=== PATIENT | male | born 1980 | race Caucasian/White ===

== ENCOUNTER 2021-03-01 12:48 | Observation (INO) ==
[2021-03-01] MEDS ORDERED: SODIUM CHLORIDE 0.9% 1000ML 1,000 ML IV ONE ×2 (13:08→14:45)
[2021-03-01] MEDS ORDERED: KETOROLAC TROMETHAMINE 15 MG/ML VIAL IV ONE (13:08)
--- NOTE | 2021-03-01 13:20 | Emergency Department Note ---
Impression & Plan Chest pain, Acute pericarditis, Pericardial effusion, Pleural effusion ED Provider Note NAME: SERGIO SNIHA AGE: 40 SEX: M : 1980 ARRIVES VIA: Walk-In INFORMANT: Patient, ED PROVIDER(S): Jw Turner DO CHIEF COMPLAINT: Chest pain HPI: Patient is a 40-year-old male who presents to the ER for squeezing chest pain which has been present for the past 48 hours in the middle of his chest. It is better when sitting up and significantly worse with lying flat. Admits to shortness of breath. He does admit to feeling his heart race as well. Is a smoker. Denies any belly pain, nausea, vomiting, or diarrhea. No dysuria, urgency, or frequency. No other exacerbating or remitting factors. Does have a history of previous pericarditis and this feels very similar. Patient denies diabetes, hypertension, hyperlipidemia, CAD, history of sudden at a young age. ROS: See above HPI for pertinent positives & negatives. A total of 10 systems reviewed and were otherwise negative. PAST MEDICAL HISTORY:See Below PAST SURGICAL HISTORY:See Below FAMILY HISTORY:See Below SOCIAL HISTORY:See Below HOME MEDICATIONS:See Below ALLERGIES:See Below VITALS:See Below PHYSICAL EXAMINATION: GENERAL: Sitting up in bed, alert, well appearing, well nourished, no distress, non-toxic EYE EXAM: normal conjunctiva. OROPHARYNX: no exudate, no erythema, lips, buccal mucosa, and tongue normal and mucous membranes are moist NECK: supple, no nuchal rigidity, no adenopathy, non-tender LUNGS: Clear to auscultation. Normal chest wall mechanics HEART: no murmurs, S1 normal and S2 normal ABDOMEN: abdomen soft, non-tender, normo-active bowel sounds, no masses, no rebound or guarding. UPPER EXTREMITIES: upper extremities are grossly normal. LOWER EXTREMITIES: No pitting edema. NEURO EXAM: Normal sensorium, cranial nerves II-XII grossly intact, normal speech, no gross weakness of arms, no gross weakness of legs. MEDICAL DECISION MAKING: Patient is a 40-year-old male with a past medical history of pericarditis who presents the ER for chest pain which is been present for the past 2 days.IV was established blood work was obtained. EKG shows diffuse ST segment abnormalities including SC depressions and ST segment elevations. Labs show no significant leukocytosis or anemia. ESR was elevated at 36. D-dimer was elevated at 560. BMP with LFTs bilirubin and troponin was negative with symptoms have been present for greater than 8 hours not indicative of ACS. His only risk factor is smoking. Lipase was normal. Covid was negative. Has not used any IV drugs for over [address] angio of the chest shows left lower lobe consolidation and effusion combination with pericardial effusion. Discussed with the case with Dr. Lackey from cardiology as well and is not any hospitalist Agapito Suarez for further evaluation. Patient was updated bedside. He was given IV Rocephin, normal saline, Toradol, colchicine and azithromycin and admitted for further work-up with the pericarditis, pleural effusion and questionable infiltrate in combination with pulse ox of about 90 to 92% Triage Nursing notes reviewed. Limited review of prior medical records performed Vital Signs: reviewed and remarkable for tachy Differential diagnosis: Differential diagnoses includes but is not limited to acute coronary syndrome, myocardial infarction, pericarditis, pulmonary embolus, aortic dissection, pne umonia, pneumothorax, musculoskeletal, shingles, esophageal. ER treatment provided: See below Diagnostics interpreted by me: ECG: Sinus rhythm rate of 113 Normal axis Diffuse cyst ST segment elevation with SC depressions QTC 433 Cardiac Monitoring: An order was placed for continuous cardiac monitoring. The monitor shows a rate of 121 with sinus rhythm. Laboratory studies: As stated above and show below. Imaging studies: CT angio of the chest as discussed above Consultation(s): Discussed with Dr. Tr Hutchinson from not any cardiology Discussed with Dr. Agapito Suarez from [facility] Procedures: none Critical Care: None Past Med/Surg History Medical History (Updated 03/01/21 @ 16:46 by Jw Turner DO) Drug abuse in remission History of opioid abuse In remission since 2017, on subutex Surgical History (Updated 03/01/21 @ 15:57 by Nathanael Sigala MD) History of hernia repair Social History (Updated 03/01/21 @ 15:58 by Nathanael Sigala MD) Smoking Status: Current every day smoker Tobacco Type: Cigarettes Hx Alcohol Use: Yes Alcohol Intake Frequency: 2-3 x/Week Hx Substance Use: Yes (in remission since 2017) Feels Safe at Home: Yes Allergies Allergies Allergy/AdvReac Type Severity Reaction Status Date / Time No Known Allergies Allergy Unverified 03/01/21 14:25 Home Meds Home Medications Medication Instructions Recorded Confirmed buprenorphine HCl 8 mg SUBLINGUAL BID 03/01/21 03/01/21 Results & Data (ED) Vital Signs Vital Signs - 24 hr 03/01/21 12:48 03/01/21 12:59 03/01/21 13:00 Temperature 36.7 C Temperature Source Temporal Artery Scan Pulse Rate 120 H 105 H 101 H Pulse Rate from SpO2 Sensor 102 H Pulse Rhythm Regular Regular Pulse Strength Normal Respiratory Rate 20 20 19 Respiratory Effort / Characteristics Non-Labored Spontaneous Respiratory Depth Normal Respiratory Pattern Regular Blood Pressure 129/83 134/80 Blood Pressure Mean 98 98 Blood Pressure Position Sitting Pulse Oximetry 97 99 91 Oxygen Delivery Method Room Air Room Air Sepsis Recent Fever Within 48 Hours No Sepsis New/Unexplained Change in Mental Status N/A Sepsis Action Taken by Nursing No Action Required 03/01/21 13:21 03/01/21 13:30 03/01/21 13:40 Temperature Temperature Source Pulse Rate 102 H 100 H 99 H Pulse Rate from SpO2 Sensor 102 H 100 H 100 H Pulse Rhythm Pulse Strength Respiratory Rate 16 20 15 Respiratory Effort / Characteristics Respiratory Depth Respiratory Pattern Blood Pressure 125/73 Blood Pressure Mean 90 Blood Pressure Position Pulse Oximetry 92 91 93 Oxygen Delivery Method Sepsis Recent Fever Within 48 Hours Sepsis New/Unexplained Change in Mental Status Sepsis Action Taken by Nursing 03/01/21 13:50 03/01/21 14:04 03/01/21 14:10 Temperature Temperature Source Pulse Rate 95 H 110 H 93 H Pulse Rate from SpO2 Sensor 95 H 95 H Pulse Rhythm Pulse Strength Respiratory Rate 15 13 Respiratory Effort / Characteristics Respiratory Depth Respiratory Pattern Blood Pressure Blood Pressure Mean Blood Pressure Position Pulse Oximetry 91 94 Oxygen Delivery Method Sepsis Recent Fever Within 48 Hours Sepsis New/Unexplained Change in Mental Status Sepsis Action Taken by Nursing 03/01/21 14:20 03/01/21 14:30 03/01/21 14:40 Temperature Temperature Source Pulse Rate 96 H 99 H 98 H Pulse Rate from SpO2 Sensor 94 H 98 H 98 H Pulse Rhythm Pulse Strength Respiratory Rate 16 18 21 Respiratory Effort / Characteristics Respiratory Depth Respiratory Pattern Blood Pressure 134/85 Blood Pressure Mean 101 Blood Pressure Position Pulse Oximetry 92 95 Oxygen Delivery Method Sepsis Recent Fever Within 48 Hours Sepsis New/Unexplained Change in Mental Status Sepsis Action Taken by Nursing 03/01/21 14:50 03/01/21 15:00 03/01/21 15:10 Temperature Temperature Source Pulse Rate 96 H 103 H 97 H Pulse Rate from SpO2 Sensor 97 H 100 H 97 H Pulse Rhythm Pulse Strength Respiratory Rate 14 15 23 Respiratory Effort / Characteristics Respiratory Depth Respiratory Pattern Blood Pressure 135/68 Blood Pressure Mean 90 Blood Pressure Position Pulse Oximetry 93 95 93 Oxygen Delivery Method Sepsis Recent Fever Within 48 Hours Sepsis New/Unexplained Change in Mental Status Sepsis Action Taken by Nursing 03/01/21 15:20 03/01/21 15:30 03/01/21 15:40 Temperature Temperature Source Pulse Rate 89 97 H 97 H Pulse Rate from SpO2 Sensor 89 98 H 97 H Pulse Rhythm Pulse Strength Respiratory Rate 16 20 18 Respiratory Effort / Characteristics Respiratory Depth Respiratory Pattern Blood Pressure 125/84 Blood Pressure Mean 97 Blood Pressure Position Pulse Oximetry 95 94 94 Oxygen Delivery Method Sepsis Recent Fever Within 48 Hours Sepsis New/Unexplained Change in Mental Status Sepsis Action Taken by Nursing Laboratory Data Result diagrams: 03/01/21 13:07 03/01/21 13:07 Lab Results 03/01/21 03/01/21 03/01/21 Range/Units 13:07 13:07 13:07 WBC 10.25 (4.8-10.8) K/uL RBC 4.40 L (4.7-6.1) M/uL Hgb 14.5 (14.0-18.0) g/dL Hct 42.5 (42-52) % MCV 96.6 (80-100) fL MCH 33.0 (25-34) pg MCHC 34.1 (32-36) g/dL RDW Std Deviation 50.4 H (36.4-46.3) fL RDW Coeff of [place] 14.2 (11.5-14.5) % Plt Count 222 (130-400) K/uL MPV 8.9 (7.4-10.4) fL Immature Gran % (Auto) 0.7 % Neut % (Auto) 66.1 % Lymph % (Auto) 18.9 % [place] % (Auto) 12.1 % Eos % (Auto) 2.0 % Baso % (Auto) 0.2 % Neut # (Auto) 6.78 H (1.4-6.5) K/uL Lymph # (Auto) 1.94 (1.2-3.4) K/uL [place] # (Auto) 1.24 H (0.11-0.59) K/uL Eos # (Auto) 0.20 (0-0.5) K/uL Baso # (Auto) 0.02 (0-0.2) K/uL Immature Gran # (Auto) 0.07 H (0.00-0.02) K/uL ESR (0-15) mm/hr APTT 27.2 (21.0-31.0) Seconds PTT Ratio 1.0 D-Dimer 560 H* (0-500) ug/L FEU Sodium 138 (136-145) mmol/L Potassium 3.9 (3.5-5.1) mmol/L Chloride 104 (98-107) mmol/L Carbon Dioxide 27 (21-32) mmol/L Anion Gap 7.0 (3-11) BUN 6 L (7-18) mg/dl Creatinine 0.69 (0.6-1.4) mg/dl Est Cr Clr Drug Dosing 182.5 ml/min Est GFR ( Amer) 138.6 ml/min Est GFR (Non-Af Amer) 119.6 ml/min BUN/Creatinine Ratio 8.2 L (10-20) Glucose 92 (70-99) mg/dl Calcium 9.3 (8.5-10.1) mg/dl Total Bilirubin 0.4 (0.2-1) mg/dl AST 18 (15-37) U/L ALT 36 (12-78) U/L Alkaline Phosphatase 104 (45-117) U/L Troponin I < 0.015 (0-0.045) ng/ml C-Reactive Protein (0-0.29) mg/dl Total Protein 7.9 (6.4-8.2) gm/dl Albumin 3.9 (3.4-5.0) gm/dl Globulin 4.0 (2.5-4.0) gm/dl Albumin/Globulin Ratio 1.0 (0.9-2) Lipase 114 (73-393) U/L COVID-19 Eval Order SARS-CoV-2 (PCR) (Negative) 03/01/21 03/01/21 03/01/21 Range/Units 13:07 13:07 15:07 WBC (4.8-10.8) K/uL RBC (4.7-6.1) M/uL Hgb (14.0-18.0) g/dL Hct (42-52) % MCV (80-100) fL MCH (25-34) pg MCHC (32-36) g/dL RDW Std Deviation (36.4-46.3) fL RDW Coeff of [place] (11.5-14.5) % Plt Count (130-400) K/uL MPV (7.4-10.4) fL Immature Gran % (Auto) % Neut % (Auto) % Lymph % (Auto) % [place] % (Auto) % Eos % (Auto) % Baso % (Auto) % Neut # (Auto) (1.4-6.5) K/uL Lymph # (Auto) (1.2-3.4) K/uL [place] # (Auto) (0.11-0.59) K/uL Eos # (Auto) (0-0.5) K/uL Baso # (Auto) (0-0.2) K/uL Immature Gran # (Auto) (0.00-0.02) K/uL ESR 36 H (0-15) mm/hr APTT (21.0-31.0) Seconds PTT Ratio D-Dimer (0-500) ug/L FEU Sodium (136-145) mmol/L Potassium (3.5-5.1) mmol/L Chloride (98-107) mmol/L Carbon Dioxide (21-32) mmol/L Anion Gap (3-11) BUN (7-18) mg/dl Creatinine (0.6-1.4) mg/dl Est Cr Clr Drug Dosing ml/min Est GFR ( Amer) ml/min Est GFR (Non-Af Amer) ml/min BUN/Creatinine Ratio (10-20) Glucose (70-99) mg/dl Calcium (8.5-10.1) mg/dl Total Bilirubin (0.2-1) mg/dl AST (15-37) U/L ALT (12-78) U/L Alkaline Phosphatase (45-117) U/L Troponin I (0-0.045) ng/ml C-Reactive Protein 2.55 H (0-0.29) mg/dl Total Protein (6.4-8.2) gm/dl Albumin (3.4-5.0) gm/dl Globulin (2.5-4.0) gm/dl Albumin/Globulin Ratio (0.9-2) Lipase (73-393) U/L COVID-19 Eval Order Covid19 at [facility] SARS-CoV-2 (PCR) (Negative) 03/01/21 Range/Units 15:07 WBC (4.8-10.8) K/uL RBC (4.7-6.1) M/uL Hgb (14.0-18.0) g/dL Hct (42-52) % MCV (80-100) fL MCH (25-34) pg MCHC (32-36) g/dL RDW Std Deviation (36.4-46.3) fL RDW Coeff of [place] (11.5-14.5) % Plt Count (130-400) K/uL MPV (7.4-10.4) fL Immature Gran % (Auto) % Neut % (Auto) % Lymph % (Auto) % [place] % (Auto) % Eos % (Auto) % Baso % (Auto) % Neut # (Auto) (1.4-6.5) K/uL Lymph # (Auto) (1.2-3.4) K/uL [place] # (Auto) (0.11-0.59) K/uL Eos # (Auto) (0-0.5) K/uL Baso # (Auto) (0-0.2) K/uL Immature Gran # (Auto) (0.00-0.02) K/uL ESR (0-15) mm/hr APTT (21.0-31.0) Seconds PTT Ratio D-Dimer (0-500) ug/L FEU Sodium (136-145) mmol/L Potassium (3.5-5.1) mmol/L Chloride (98-107) mmol/L Carbon Dioxide (21-32) mmol/L Anion Gap (3-11) BUN (7-18) mg/dl Creatinine (0.6-1.4) mg/dl Est Cr Clr Drug Dosing ml/min Est GFR ( Amer) ml/min Est GFR (Non-Af Amer) ml/min BUN/Creatinine Ratio (10-20) Glucose (70-99) mg/dl Calcium (8.5-10.1) mg/dl Total Bilirubin (0.2-1) mg/dl AST (15-37) U/L ALT (12-78) U/L Alkaline Phosphatase (45-117) U/L Troponin I (0-0.045) ng/ml C-Reactive Protein (0-0.29) mg/dl Total Protein (6.4-8.2) gm/dl Albumin (3.4-5.0) gm/dl Globulin (2.5-4.0) gm/dl Albumin/Globulin Ratio (0.9-2) Lipase (73-393) U/L COVID-19 Eval Order SARS-CoV-2 (PCR) NEGATIVE (Negative) Administered Medications Discontinued Medications Azithromycin (Azithromycin 250 Mg Tab) 500 mg PO NOW ONE Stop: 03/01/21 14:42 Last Admin: 03/01/21 15:04 Dose: 500 mg Documented by: [id number] Colchicine (Colchicine 0.6 Mg Tab) 0.6 mg PO NOW ONE Stop: 03/01/21 14:46 Last Admin: 03/01/21 15:04 Dose: 0.6 mg Documented by: [id number] Sodium Chloride (Nss 1000ml) 1,000 mls @ 999 mls/hr IV .Q1H1M ONE Stop: 03/01/21 14:08 Last Infusion: 03/01/21 14:23 Dose: 999 mls/hr Documented by: [id number] Admin: 03/01/21 13:22 Dose: 999 mls/hr Documented by: [id number] Ceftriaxone Sodium (Rocephin) 1,000 mg in 50 mls @ 100 mls/hr IV NOW STA Stop: 03/01/21 15:10 Last Infusion: 03/01/21 15:33 Dose: 100 mls/hr Documented by: [id number] Admin: 03/01/21 15:01 Dose: 100 mls/hr Documented by: [id number] Sodium Chloride (Nss 1000ml) 1,000 mls @ 999 mls/hr IV .Q1H1M ONE Stop: 03/01/21 15:45 Last Admin: 03/01/21 15:04 Dose: 999 mls/hr Documented by: [id number] Ioversol (Optiray 320 125ml) 120 ml IV ONCE ONE Stop: 03/01/21 14:06 Last Admin: 03/01/21 14:05 Dose: 120 ml Documented by: [id number] Ketorolac Tromethamine (Ketorolac Tromethamine 15 Mg/Ml Vial) 15 mg IV NOW ONE Stop: 03/01/21 13:09 Last Admin: 03/01/21 13:22 Dose: 15 mg Documented by: [id number] Imaging Data Radiologist's Impression: Chest X-Ray 03/01/21 12:59 XR chest 1V portable CLINICAL HISTORY: Chest Pain COMPARISON STUDY: No previous studies for comparison. FINDINGS: Lung volumes are normal. Lungs are clear. There is a suspected trace left pleural effusion. Cardiac size is normal. Mediastinal contours are normal. There is no evidence for pulmonary edema. IMPRESSION: Suspected trace left pleural effusion. ACT 112: Negative or not required by law. Electronically signed by: Roosevelt Guajardo M.D. 03/01/2021 1:22 PM Chest CTA 03/01/21 13:46 CT ANGIOGRAPHY OF THE CHEST, PULMONARY EMBOLUS PROTOCOL CLINICAL HISTORY: Midsternal chest pain. Shortness of breath. Evaluate for pulmo nary embolus. COMPARISON STUDY: Chest radiograph performed earlier today. TECHNIQUE: Following IV administration of 120 mL of Optiray, helical axial images of the chest were obtained utilizing the pulmonary embolus protocol. Maximal intensity projections and sagittal and coronal reformats were viewed on an independent 3D workstation. IV contrast was administered without complication. Automated exposure control was utilized for the study. A dose lowering technique was utilized adhering to the principles of ALARA. CT DOSE: 719.82 mGy.cm FINDINGS: No pulmonary emboli identified. There is no thoracic aortic dissection. Mild cardiomegaly is noted. Trace pericardial fluid and mild pericardial thickening is noted. No enlarged thoracic lymph nodes are present. Prominent distal paraesophageal lymph node is noted. There is no pneumothorax. Note is made of a small left pleural effusion. There is left lower lobe subpleural opacity. There is also lingular opacity. Opacities within the right lungs favor atelectasis. There is no pneumothorax. Hepatic steatosis is noted within visualized portions of the upper abdomen. Small hiatal hernia is present. IMPRESSION: 1. No pulmonary emboli identified. 2. Small left pleural effusion. Associated left lower lobe opacity could reflect pneumonia or atelectasis. 3. Mild pericardial thickening and trace pericardial fluid. ACT 112: Negative or not required by law. Electronically signed by: Roosevelt Guajardo M.D. 03/01/2021 2:34 PM Discharge Plan Visit Data Chief Complaint: Chest Pain Stated Complaint: CHEST PAIN 2 DAYS ED Provider: Jw Turner Discharge Problem: Chest pain, Acute pericarditis, Pericardial effusion, Pleural effusion Forms Stand Alone Forms: [employer] [facility] [employer] Prescriptions Prescriptions: No Action buprenorphine HCl 8 mg Tablet, Sublingual 8 mg SUBLINGUAL BID RF: 0 Discharge Problem: Chest pain Qualifiers: Chest pain type: unspecified Qualified Code(s): R07.9 - Chest pain, unspecified Acute pericarditis Qualifiers: Pericarditis type: unspecified type Qualified Code(s): I30.9 - Acute pericarditis, unspecified
[2021-03-01 13:23] LABS: Basophils # (auto) 0.02 K/uL (0-0.2); Basophils % (auto) 0.2 %; Hematocrit (blood only) 42.5 % (42-52); Hemoglobin 14.5 g/dL (14.0-18.0); Immature Granulocytes # (auto) 0.07 K/uL (0.00-0.02); Immature Granulocytes % (auto) 0.7 %; Lymphocytes # (auto) 1.94 K/uL (1.2-3.4); Lymphocytes % (auto) 18.9 %; Mean Corpuscular Hgb Conc 34.1 g/dL (32-36); Mean Corpuscular Volume 96.6 fL (80-100); Mean Platelet Volume 8.9 fL (7.4-10.4); Monocytes # (auto) 1.24 K/uL (0.11-0.59); Monocytes % (auto) 12.1 %; Neutrophils # (auto) 6.78 K/uL (1.4-6.5); Neutrophils % (auto) 66.1 %; Platelet Count 222 K/uL (130-400); RDW Coefficient of Variation 14.2 % (11.5-14.5); RDW Standard Deviation 50.4 fL (36.4-46.3); White Blood Count 10.25 K/uL (4.8-10.8)
--- NOTE | 2021-03-01 13:23 | XRay Report ---
XR chest 1V portable CLINICAL HISTORY: Chest Pain COMPARISON STUDY: No previous studies for comparison. FINDINGS: Lung volumes are normal. Lungs are clear. There is a suspected trace left pleural effusion. Cardiac size is normal. Mediastinal contours are normal. There is no evidence for pulmonary edema. IMPRESSION: Suspected trace left pleural effusion. ACT 112: Negative or not required by law. Electronically signed by: Roosevelt Guajardo M.D. 03/01/2021 1:22 PM
[2021-03-01 13:37] LABS: Partial Thromboplastin Time 27.2 Seconds (21.0-31.0)
[2021-03-01 13:38] LABS: Alanine Aminotransferase 36 U/L (12-78); Albumin Level 3.9 gm/dl (3.4-5.0); Aspartate Aminotransferase 18 U/L (15-37); BUN Creatinine Ratio 8.2 (10-20); Blood Urea Nitrogen 6 mg/dl (7-18); Calcium 9.3 mg/dl (8.5-10.1); Carbon Dioxide 27 mmol/L (21-32); Chloride 104 mmol/L (98-107); Creatinine Clr Calc Pharmacy 182.5 ml/min; Est GFR (African American) 138.6 ml/min; Est GFR (Non-African American) 119.6 ml/min; Glucose 92 mg/dl (70-99); Lipase 114 U/L (73-393); Potassium 3.9 mmol/L (3.5-5.1); Sodium 138 mmol/L (136-145)
[2021-03-01 13:42] LABS: Alkaline Phosphatase 104 U/L (45-117); Bilirubin,Total 0.4 mg/dl (0.2-1); Total Protein 7.9 gm/dl (6.4-8.2); Troponin I < 0.015 ng/ml (0-0.045)
[2021-03-01 13:43] LABS: D Dimer 560 ug/L FEU (0-500)
[2021-03-01] MEDS ORDERED: OPTIRAY 320 125ml IV ONE (14:05)
--- NOTE | 2021-03-01 14:35 | CT Scan Report ---
CT ANGIOGRAPHY OF THE CHEST, PULMONARY EMBOLUS PROTOCOL CLINICAL HISTORY: Midsternal chest pain. Shortness of breath. Evaluate for pulmonary embolus. COMPARISON STUDY: Chest radiograph performed earlier today. TECHNIQUE: Following IV administration of 120 mL of Optiray, helical axial images of the chest were o btained utilizing the pulmonary embolus protocol. Maximal intensity projections and sagittal and cor onal reformats were viewed on an independent 3D workstation. IV contrast was administered without co mplication. Automated exposure control was utilized for the study. A dose lowering technique was ut ilized adhering to the principles of ALARA. CT DOSE: 719.82 mGy.cm FINDINGS: No pulmonary emboli identified. There is no thoracic aortic dissection. Mild cardiomegaly is noted. Trace pericardial fluid and mild pericardial thickening is noted. No enlarged thoracic lymp h nodes are present. Prominent distal paraesophageal lymph node is noted. There is no pneumothorax. N ote is made of a small left pleural effusion. There is left lower lobe subpleural opacity. There is a lso lingular opacity. Opacities within the right lungs favor atelectasis. There is no pneumothorax. H epatic steatosis is noted within visualized portions of the upper abdomen. Small hiatal hernia is pre sent. IMPRESSION: 1. No pulmonary emboli identified. 2. Small left pleural effusion. Associated left lower lobe opacity could reflect pneumonia or atelect asis. 3. Mild pericardial thickening and trace pericardial fluid. ACT 112: Negative or not required by law. Electronically signed by: Roosevelt Guajardo M.D. 03/01/2021 2:34 PM
[2021-03-01] MEDS ORDERED: AZITHROMYCIN 250 MG TAB PO ONE (14:41)
[2021-03-01] MEDS ORDERED: cefTRIAXone SODIUM 1,000 MG/50 ML BAG IV STA (14:41)
[2021-03-01] MEDS ORDERED: COLCHICINE 0.6 MG TAB PO ONE (14:45)
--- NOTE | 2021-03-01 15:48 | History & Physical Report ---
Date of Service March 01, 2021 Assessment & Plan (1) Acute pericarditis: Emery is a 40-year-old male with a past medical history of idiopathic pericarditis, opioid drug abuse in remission since 2017 on Suboxone who presents with 2 days of acute chest pain and who was admitted for observation and treatment of acute pericarditis with small pericardial effusion. Acute pericarditis with pericardial effusion 2 days of symptoms, improved by sitting forward. CTA: No PE. Pericardial thickening. Small paracardial effusion. D-dimer 560 ESR 36, CRP 2.5 Troponin negative, symptoms greater than 24 hours EKG with mild diffuse ST segment changes consistent with pericarditis TTE pending Colchicine 0.6 mg twice daily, ibuprofen 600 mg 3 times daily Gastritis prophylaxis with Protonix 40 mg daily, famotidine 20 mg twice daily Small pericardial effusion, TTE pending as above. No signs of tamponade or restrictive pathology at time of assessment Alcohol intake Patient reports a prior history of high alcohol intake prior to 2016. Currently drinks a 1.5L of wine several times a week, reports that two weeks ago he went over 7 to 8 days without any alcohol and had no withdrawal symptoms or tremulousness. Discussed that given his alcohol intake he is at risk for alcohol withdrawal symptoms, but since he went over >7 days without symptoms in the last 2 weeks we will defer AWSS, patient will notify if he has any withdrawal symptoms or tremulousness. Healthy alcohol intake counseling provided. Tobacco abuse Tobacco counseling Nicotine patch ordered History of drug abuse in remission Continue buprenorphine 8 mg sublingual twice daily Diet: Regular Disposition: Medical surgical with telemetry, observation DVT prophylaxis: Low risk, SCDs. CODE STATUS: Full code (2) Drug abuse in remission: (3) Pericardial effusion: History of Present Illness Primary Care Provider: NO PCP Emery reports yesterday he woke up with chest pain in the morning which he did not have the evening prior. Pain started at a constant slashing and sharp vice- like pain 5.5/10 across the midchest. Went to sleep last night at 11:30pm, but 'was still hurting' and the pain woke him up at 5am which had increased to an 8/10. Leaning forward gives him some relief and improvement and was able to nap 30 minutes while leaning forward.He had a history of pericarditis a few years ago which felt exactly the same. Denies fever, chills, sweats. Denies cough and shortness of breath. Deep breath increases his pain. Denies sinus congestion, ear pain, loss of taste/smell, and cold like symptoms. DId not get the COVID vaccination. Is not sure what caused his last pericarditis, reports he had some workup which was inconclusive. MHx: Takes Subutex following rehab in 2017 for opioid abuse. Reports he has been completely clean since then and the buprenorphine is part of his treatment. Enrolled at [facility] in [place]. Denies any recent illicit drug use.Denies other medical hx. Shx: Quad tendon repair, bilateral hernia repair. Tobacco: 1ppd x25 years, would like a nicotine patch EtoH: 2-3x per week, ~1L of wine in a sitting. Years ago had termors and shakes after being sober but reports he tapered down from daily drinking in 2017 and hasn't had any withdrawal symptoms. Reports he has gone 7-8 days without alcohol this past month. Social: Just moved to the area, lives with his mother and step-father. No recent sick contacts. FHx: No 1st degree history of heart disease, cancer, diabetes, or autoimmune disease. Reports his mother takes Synthroid for hypothyroid. Denies other fhx. Allergies Allergy/AdvReac Type Severity Reaction Status Date / Time No Known Allergies Allergy Unverified 03/01/21 14:25 Home Medications Medication Instructions Recorded Confirmed Type buprenorphine HCl 8 mg SUBLINGUAL BID 03/01/21 03/01/21 History Past Med/Surg History Medical History (Updated 03/01/21 @ 16:46 by Jw Turner DO) Drug abuse in remission History of opioid abuse In remission since 2017, on subutex Surgical History (Updated 03/01/21 @ 15:57 by Nathanael Sigala MD) History of hernia repair Social History (Updated 03/01/21 @ 15:58 by Nathanael Sigala MD) Smoking Status: Current every day smoker Tobacco Type: Cigarettes Cigarettes Per Day: 1 pk daily; Second Hand Exposure: No; Do You Dip or Chew Tobacco: No; Tobacco Cessation Education Requested by Patient: No Hx Alcohol Use: Yes Alcohol type: wine Alcohol Intake Frequency: 2-3 x/Week Hx Substance Use: Yes Last Used Substance Other:: 2017 Preferred Language: Eritrean Communication Ability: Effective Apprise Counselor Required: No Beliefs That Will Affect Care: None Current Living Situation: Parent Other Information That Helps Us Care for You: No Feels Safe at Home: Yes Assistive Devices: None Review of Systems Review of Systems: Constitutional: Denies fever, chills, malaise, weight change Eyes: Denies double vision, vision change, eye pain ENT: Denies ear pain, sore throat, sinus pain Cardiovascular: See HPI Respiratory: Denies shortness of breath, cough, sputum production, difficulty breathing Gastrointestinal: Denies abdominal pain, nausea, vomiting, constipation, diarrhea Genitourinary: Denies pain with urination, urinary urgency, urinary frequency Musculoskeletal: Denies weakness, muscle aches/pain, joint aches/pain Integumentary:Denies rash, lesions, bruising Neurological: Denies headache, numbness, tingling, focal weakness Physical Exam Physical Exam: General: A&Ox3. NAD. Cooperative. HEENT: Atraumatic, normocephalic. Pulm: LLL with crackles, otherwise CTAB A&P. -wheezes, -rales, -rhonchi. Symmetrical chest rise. No increase work of breathing. No respiratory distress. Cardiac: RRR, -mrg. Radial pulses intact and symmetrical. Abdominal: Nontender, nondistended, soft. BS present. CRANIAL NERVES: II: Pupils equal and reactive, no relative afferent pupillary defect, no VF cuts III, IV, : EOM intact, no gaze preference or deviation, no nystagmus. V: normal sensation in V1, V2, and V3 segments bilaterally VII: no asymmetry, no nasolabial fold flattening VIII: normal hearing to speech IX, X: normal palatal elevation, no uvular deviation XI: 5/5 head turn and 5/5 shoulder shrug bilaterally XII: midline tongue protrusion MOTOR: RUE: 5/5 Shoulder internal rotation, external rotation, flexion, extension, abduction, adduction 5/5 Elbow flexion/extension, wrist flexion/extension 5/5 lathe setup operator strength, finger flexion/extension, interosseus LUE: 5/5 Shoulder internal rotation, external rotation, flexion, extension, abduction, adduction 5/5 Elbow flexion/extension, wrist flexion/extension 5/5 lathe setup operator strength, finger flexion/extension, interosseus RLE: 5/5 to hip flexion/extension, knee flexion/extension, ankle dorsiflexion/plantarflexion LLE: 5/5 to hip flexion/extension, knee flexion/extension, ankle dorsiflexion/plantarflexion SENSORY: Normal to soft touch in lower extremities without deficit or asymmetry Results & Data Results & Data ([facility]) Vital Signs (Past 12 Hours) Vital Signs Temp Pulse Resp BP Pulse Ox 03/01/21 15:40 97 H 18 94 03/01/21 15:30 97 H 20 125/84 94 03/01/21 15:20 89 16 95 03/01/21 15:10 97 H 23 93 03/01/21 15:00 103 H 15 135/68 95 03/01/21 14:50 96 H 14 93 03/01/21 14:40 98 H 21 95 03/01/21 14:30 99 H 18 134/85 92 03/01/21 14:20 96 H 16 03/01/21 14:10 93 H 13 94 03/01/21 14:04 110 H 03/01/21 13:50 95 H 15 91 03/01/21 13:40 99 H 15 93 03/01/21 13:30 100 H 20 125/73 91 03/01/21 13:21 102 H 16 92 03/01/21 13:00 101 H 19 134/80 91 03/01/21 12:59 105 H 20 99 03/01/21 12:48 36.7 C 120 H 20 129/83 97 Supervising Physician Co-Signing Physician Notes Patient seen and examined independently of PGY-3 Dr. Sigala. Agree with history, exam findings, assessment and plan of care. In brief, Emery is a 40-year-old male with history of prior opioid use disorder and previous episode of acute pericarditis admitted with new pleuritic chest pain and diffuse ST elevations consistent with acute pericarditis. Has had some vague viral URI type symptoms. He has not been vaccinated for COVID-19. denies any cough, shortness of breath. Pain is worse with laying in the supine position and with inspiration. Better when he leans forward. Pain is improved after he takes his regular dose of Subutex. ED course: EKG with diffuse ST elevations. Elevated D-dimer. Troponin negative. ESR is 36, CRP is 2.55. COVID-19 testing is negative. CTA negative for PE. There is a small left pleural effusion with associated left lower opacity. There is mild pericardial thickening and trace pericardial fluid. Transthoracic echo with normal ventricular function, EF 50 to 55%. There is a trace pericardial effusion. Vital signs nursing notes reviewed. He is well-appearing. No acute distress. Heart with regular rate and rhythm. There is no pericardial rub. There are faint crackles in the left lower base. He has good air movement throughout all lung castellanos. There is no wheezing. Labs and imaging as above. 1. Acute pericarditis. Continue with colchicine twice daily and ibuprofen 600 mg 3 times daily. GI prophylaxis with Protonix and famotidine. 2. Tobacco use. Nicotine patch ordered. 3. History of opioid use disorder. Continue Subutex 8 mg twice daily. Dispo: Pending clinical improvement. Resident Activity Tracking Resident Involvement: Resident Care Provided Care Provided: Adult Hospital Medicine
--- NOTE | 2021-03-01 16:35 | XCELERA ---
[id number]
--- NOTE | 2021-03-01 17:05 | Electrocardiogram Report ---
Test Reason : Blood Pressure : / mmHG Vent. Rate : 113 BPM Atrial Rate : 113 BPM P-R Int : 152 ms QRS Dur : 084 ms QT Int : 316 ms P-R-T Axes : 042 057 070 degrees QTc Int : [address] elevation, consider early repolarization, pericarditis, or injury Nonspecific ST and T wave abnormality Abnormal ECG No previous ECGs available Confirmed by Vladislav Lackey ([id number]) on 03/01/2021 5:05:00 PM Referred By: Confirmed By:Trevor Lackey
[2021-03-01] MEDS ORDERED: PANTOprazole 40 MG TAB PO STA (18:12)
[2021-03-01] MEDS ORDERED: ACETAMINOPHEN 325 MG TAB PO PRN (18:12)
[2021-03-01] MEDS: NICOTINE 14 MG/24 HR PATCH TD SCH (19:53)
[2021-03-01] MEDS: IBUPROFEN 600 MG TAB PO SCH (19:55)
[2021-03-01] MEDS: FAMOTIDINE 20 MG in SYRINGE 3 ML IV SCH (20:02)
[2021-03-01] MEDS: buprenorphine HCL 8 MG SUBL SL SCH (20:47)
[2021-03-02] MEDS: IBUPROFEN 600 MG TAB PO SCH ×3 (05:51→21:06)
[2021-03-02 08:04] LABS: Basophils # (auto) 0.01 K/uL (0-0.2); Basophils % (auto) 0.1 %; Eosinophils # (auto) 0.34 K/uL (0-0.5); Eosinophils % (auto) 4.6 %; Hematocrit (blood only) 37.8 % (42-52); Hemoglobin 12.7 g/dL (14.0-18.0); Immature Granulocytes # (auto) 0.04 K/uL (0.00-0.02); Immature Granulocytes % (auto) 0.5 %; Lymphocytes # (auto) 1.46 K/uL (1.2-3.4); Lymphocytes % (auto) 19.9 %; Mean Corpuscular Hgb Conc 33.6 g/dL (32-36); Mean Corpuscular Volume 98.2 fL (80-100); Mean Platelet Volume 8.8 fL (7.4-10.4); Monocytes # (auto) 0.94 K/uL (0.11-0.59); Monocytes % (auto) 12.8 %; Neutrophils # (auto) 4.55 K/uL (1.4-6.5); Neutrophils % (auto) 62.1 %; Platelet Count 172 K/uL (130-400); RDW Coefficient of Variation 14.5 % (11.5-14.5); RDW Standard Deviation 51.7 fL (36.4-46.3); Red Blood Count 3.85 M/uL (4.7-6.1); White Blood Count 7.34 K/uL (4.8-10.8)
[2021-03-02] MEDS: FAMOTIDINE 20 MG in SYRINGE 3 ML IV SCH ×2 (08:09→21:06)
[2021-03-02] MEDS: NICOTINE 14 MG/24 HR PATCH TD SCH (08:09)
[2021-03-02] MEDS: COLCHICINE 0.6 MG TAB PO SCH ×2 (08:09→21:07)
[2021-03-02] MEDS: buprenorphine HCL 8 MG SUBL SL SCH ×2 (08:12→21:06)
[2021-03-02 08:30] LABS: BUN Creatinine Ratio 11.2 (10-20); Calcium 9.2 mg/dl (8.5-10.1); Creatinine Clr Calc Pharmacy 184.8 ml/min; Est GFR (Non-African American) 118.2 ml/min; Potassium 4.2 mmol/L (3.5-5.1)
--- NOTE | 2021-03-02 11:11 | Hospitalist Progress Note ---
Date of Service March 02, 2021 Assessment & Plan (1) Acute pericarditis: Emery is a 40-year-old male with a past medical history of idiopathic pericarditis, opioid drug abuse in remission since 2017 on Suboxone who presents with 2 days of acute chest pain and who was admitted for observation and treatment of acute pericarditis with small pericardial effusion. Acute pericarditis with pericardial effusion 3 days of symptoms, improved by sitting forward. D-dimer 560 ESR 36, CRP 2.5 CTA: No PE. Pericardial thickening. Small paracardial effusion. Troponin negative, given 3 days of symptoms no need to trend at this point EKG with mild diffuse ST segment changes consistent with pericarditis TTE with small pericardial effusion, otherwise unremarkable Colchicine 0.6 mg twice daily, ibuprofen 600 mg 3 times daily Gastritis prophylaxis with Protonix 40 mg daily, famotidine 20 mg twice daily - Will need close outpatient follow up, will arrange prior to discharge Alcohol intake Patient reports a prior history of high alcohol intake prior to 2016. Currently drinks a 1.5L of wine several times a week, reports that two weeks ago he went over 7 to 8 days without any alcohol and had no withdrawal symptoms or tremulousness. Discussed that given his alcohol intake he is at risk for alcohol withdrawal symptoms, but since he went over >7 days without symptoms in the last 2 weeks we will defer AWSS, patient will notify if he has any withdrawal symptoms or tremulousness. Healthy alcohol intake counseling provided. Tobacco abuse Tobacco counseling Nicotine patch ordered History of drug abuse in remission Continue buprenorphine 8 mg sublingual twice daily Diet: Regular Disposition: Medical surgical with telemetry DVT prophylaxis: Low risk, ambulate CODE STATUS: Full code (2) Drug abuse in remission: (3) Pericardial effusion: Admission and Anticipated Discharge Date Admission Date: March 01, 2021 Supervising Physician Co-Signing Physician Notes Patient seen and examined independently of PGY-3 Dr. Perry. Agree with history, exam findings, assessment and plan of care. In brief, Emery is a 40-year-old male with history of prior opioid use disorder and previous episode of acute pericarditis admitted with new pleuritic chest pain and diffuse ST elevations consistent with acute pericarditis. Today, he continues to have pleuritic chest pain. It is slightly better compared to previous days. He does report that he has had some heartburn type symptoms. He has used Prilosec in the past for this with improvement. Vital signs nursing notes reviewed. He is well-appearing. No acute distress. Heart with regular rate and rhythm. There is no pericardial rub. He has good air movement throughout all lung castellanos. Crackles in the left lower base that were present on admission are no longer heard. There is no wheezing. Labs and imaging as above. 1. Acute pericarditis. Continue with colchicine twice daily and ibuprofen 600 mg 3 times daily. Continue with Protonix and Pepcid for GI prophylaxis. Unfortunately, Prilosec is not on formulary, but he can use this on discharge for GI prophylaxis as he will need to be on anti-inflammatory medicine for several weeks. Discussed restrictions for physical activity while he is on anti-inflammatories. 2. Left lower lobe opacity, initially thought to be consistent with community- acquired pneumonia. He has received ceftriaxone in the emergency room. Pro-Duane is negative making a bacterial pneumonia much less likely. Consider stopping antibiotics. This may be secondary to resolving viral process. 3. Tobacco use. Nicotine patch ordered. 4. History of opioid use disorder. Continue Subutex 8 mg twice daily. Dispo: Pending clinical improvement. Subjective Mr. Singh is resting watching poker on TV he is still having sharp pleuritic pain centrally. Not feeling short of breath, not having any fevers, pain is relieved by the subutex but when that wears off it is as bad as ever. He admits that he has had several respiratory infections in the past two months but nothing that he sought medical care for and he feels improved from that standpoint. Review of Systems Review of Systems: All systems reviewed & are unremarkable except as noted in HPI & below Physical Exam Physical Exam: Constitutional: Well appearing 40 year old man watching gambling box person bed resting comfortably, communicating easily Eyes: PERRLA b/l, EOMMI Respiratory: Breath sounds vesicular bilaterally, no cough, no increased work of breathing Cardiovascular: Regular rate regular rhythm, no m/r/s/g, no lower limb edema, peripheral pulses intact and equal. GI: Abdomen soft nontender, no masses Skin: Warm dry no rashes Results & Data Results & Data ([facility]) Vital Signs (Past 12 Hours) Vital Signs Temp Pulse Pulse Resp BP Pulse Ox 03/02/21 07:40 36.7 C 80 16 113/70 95 03/02/21 02:50 36.8 C 77 16 102/63 96 03/02/21 01:07 93 H 03/01/21 23:14 37.1 C 88 17 97/55 L 94 Resident Activity Tracking Resident Involvement: Resident Care Provided Care Provided: Adult Hospital Medicine (1) Acute pericarditis Pericarditis type: unspecified type Qualified Code(s): I30.9 - Acute pericarditis, unspecified
[2021-03-02] MEDS ORDERED: cefTRIAXone SODIUM 1,000 MG in DEXTROSE 5% 50 ML IV SCH (15:00)
[2021-03-02] MEDS ORDERED: cefTRIAXone SODIUM 2,000 MG in DEXTROSE 5% 50 ML IV SCH (15:00)
[2021-03-02] MEDS: PANTOprazole 40 MG TAB PO SCH (16:44)
[2021-03-02] MEDS: NICOTINE 21 MG/24 HR TDSY TD SCH (22:31)
[2021-03-03] MEDS: IBUPROFEN 600 MG TAB PO SCH ×2 (06:30→12:14)
[2021-03-03 07:04] LABS: Basophils # (auto) 0.02 K/uL (0-0.2); Basophils % (auto) 0.3 %; Eosinophils # (auto) 0.35 K/uL (0-0.5); Eosinophils % (auto) 5.1 %; Hematocrit (blood only) 40.4 % (42-52); Hemoglobin 13.4 g/dL (14.0-18.0); Immature Granulocytes # (auto) 0.05 K/uL (0.00-0.02); Immature Granulocytes % (auto) 0.7 %; Lymphocytes # (auto) 1.47 K/uL (1.2-3.4); Lymphocytes % (auto) 21.5 %; Mean Corpuscular Hemoglobin 32.7 pg (25-34); Mean Corpuscular Hgb Conc 33.2 g/dL (32-36); Mean Corpuscular Volume 98.5 fL (80-100); Mean Platelet Volume 9.1 fL (7.4-10.4); Monocytes # (auto) 0.74 K/uL (0.11-0.59); Monocytes % (auto) 10.8 %; Neutrophils # (auto) 4.21 K/uL (1.4-6.5); Neutrophils % (auto) 61.6 %; Platelet Count 197 K/uL (130-400); RDW Coefficient of Variation 13.9 % (11.5-14.5); RDW Standard Deviation 49.6 fL (36.4-46.3); White Blood Count 6.84 K/uL (4.8-10.8)
[2021-03-03 07:47] LABS: BUN Creatinine Ratio 13.1 (10-20); Calcium 9.3 mg/dl (8.5-10.1); Creatinine Clr Calc Pharmacy 157.6 ml/min; Est GFR (African American) 130.4 ml/min; Est GFR (Non-African American) 112.5 ml/min; Potassium 4.1 mmol/L (3.5-5.1)
[2021-03-03] MEDS: COLCHICINE 0.6 MG TAB PO SCH (08:32)
[2021-03-03] MEDS: PANTOprazole 40 MG TAB PO SCH (08:32)
[2021-03-03] MEDS: NICOTINE 21 MG/24 HR TDSY TD SCH (08:32)
[2021-03-03] MEDS: FAMOTIDINE 20 MG in SYRINGE 3 ML IV SCH (08:37)
[2021-03-03] MEDS: buprenorphine HCL 8 MG SUBL SL SCH (08:37)
--- NOTE | 2021-03-03 10:55 | Discharge Summary ---
Date of Service March 03, 2021 Admission HPI Per Admitting Provider Emery reports yesterday he woke up with chest pain in the morning which he did not have the evening prior. Pain started at a constant slashing and sharp vice- like pain 5.5/10 across the midchest. Went to sleep last night at 11:30pm, but 'was still hurting' and the pain woke him up at 5am which had increased to an 8/10. Leaning forward gives him some relief and improvement and was able to nap 30 minutes while leaning forward.He had a history of pericarditis a few years ago which felt exactly the same. Denies fever, chills, sweats. Denies cough and shortness of breath. Deep breath increases his pain. Denies sinus congestion, ear pain, loss of taste/smell, and cold like symptoms. DId not get the COVID vaccination. Is not sure what caused his last pericarditis, reports he had some workup which was inconclusive. MHx: Takes Subutex following rehab in 2017 for opioid abuse. Reports he has been completely clean since then and the buprenorphine is part of his treatment. Enrolled at [facility] in [place]. Denies any recent illicit drug use.Denies other medical hx. Shx: Quad tendon repair, bilateral hernia repair. Tobacco: 1ppd x25 years, would like a nicotine patch EtoH: 2-3x per week, ~1L of wine in a sitting. Years ago had termors and shakes after being sober but reports he tapered down from daily drinking in 2017 and hasn't had any withdrawal symptoms. Reports he has gone 7-8 days without alcohol this past month. Social: Just moved to the area, lives with his mother and step-father. No recent sick contacts. FHx: No 1st degree history of heart disease, cancer, diabetes, or autoimmune disease. Reports his mother takes Synthroid for hypothyroid. Denies other fhx. Admission Exam Per Admitting Provider General: A&Ox3. NAD. Cooperative. HEENT: Atraumatic, normocephalic. Pulm: LLL with crackles, otherwise CTAB A&P. -wheezes, -rales, -rhonchi. Symmetrical chest rise. No increase work of breathing. No respiratory distress. Cardiac: RRR, -mrg. Radial pulses intact and symmetrical. Abdominal: Nontender, nondistended, soft. BS present. CRANIAL NERVES: II: Pupils equal and reactive, no relative afferent pupillary defect, no VF cuts III, IV, : EOM intact, no gaze preference or deviation, no nystagmus. V: normal sensation in V1, V2, and V3 segments bilaterally VII: no asymmetry, no nasolabial fold flattening VIII: normal hearing to speech IX, X: normal palatal elevation, no uvular deviation XI: 5/5 head turn and 5/5 shoulder shrug bilaterally XII: midline tongue protrusion MOTOR: RUE: 5/5 Shoulder internal rotation, external rotation, flexion, extension, abduction, adduction 5/5 Elbow flexion/extension, wrist flexion/extension 5/5 spa consultant strength, finger flexion/extension, interosseus LUE: 5/5 Shoulder internal rotation, external rotation, flexion, extension, abduction, adduction 5/5 Elbow flexion/extension, wrist flexion/extension 5/5 spa consultant strength, finger flexion/extension, interosseus RLE: 5/5 to hip flexion/extension, knee flexion/extension, ankle dorsiflexion/plantarflexion LLE: 5/5 to hip flexion/extension, knee flexion/extension, ankle dorsiflexion/plantarflexion SENSORY: Normal to soft touch in lower extremities without deficit or asymmetry Principal Diagnosis Pericarditis Discharge Exam Constitutional: 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 GI: Abdomen soft nontender, no masses Skin: Warm dry no rashes Discharge Data Allergies Allergy/AdvReac Type Severity Reaction Status Date / Time No Known Allergies Allergy Unverified 03/01/21 14:25 Consultations 03/01/21 14:49 ED Decision to Admit Stat Ordered Studies 03/01/21 13:46 CT angio chest PE protocol Stat Hospital Course (1) Acute pericarditis: Emery is a 40-year-old male with a past medical history of idiopathic pericarditis, opioid drug abuse in remission since 2017 on Suboxone who presents with 2 days of acute chest pain and who was admitted for observation and treatment of acute pericarditis with small pericardial effusion. Acute pericarditis with pericardial effusion 3 days of symptoms, improved by sitting forward. D-dimer 560 ESR 36, CRP 2.5 CTA: No PE. Pericardial thickening. Small paracardial effusion. Troponin negative, given 3 days of symptoms did not trend EKG with mild diffuse ST segment changes consistent with pericarditis TTE with small pericardial effusion, otherwise unremarkable Colchicine 0.6 mg twice daily, ibuprofen 600 mg 3 times daily Gastritis prophylaxis with Protonix 40 mg daily, famotidine 20 mg twice daily - Will need close outpatient follow up, planning to follow up with moms doctor in spring he promises me he will make this follow up on Thursday. Taper for ibuprofen 600 TID x 3 weeks 400 tid x1 week and 200 tid x1 week Colchicine should be continued for six months due to recurrent pericarditis do not return to exertion until cleared by outpatient doctor and chest pain totally resolved. Alcohol intake Patient reports a prior history of high alcohol intake prior to 2016. Currently drinks a 1.5L of wine several times a week, reports that two weeks ago he went over 7 to 8 days without any alcohol and had no withdrawal symptoms or tremulousness. Discussed that given his alcohol intake he is at risk for alcohol withdrawal symptoms, but since he went over >7 days without symptoms in the last 2 weeks we will defer AWSS, patient will notify if he has any withdrawal symptoms or tremulousness. Healthy alcohol intake counseling provided. Tobacco abuse Tobacco counseling Nicotine patch ordered he is desiring to quit now, will follow up with PCP for further scripts and help with quitting smoking History of drug abuse in remission Continue buprenorphine 8 mg sublingual twice daily (2) Drug abuse in remission: (3) Pericardial effusion: Total Time Total Time Spent Total Time Spent (In Minutes): 20 Discharge Plan Discharge Items Patient Disposition: Home - Self-Care Reason For Visit: ACUTE PERICARDITIS Discharge Diagnosis: Pericarditis Activity: Per Instructions section Non-emergency contact: Primary Care Provider Call non-emergency contact if: you have any medication questions, your symptoms worsen and your temperature is above 101 Follow-up/Referrals: PCP,NO [Primary Care Provider] - Diet: Regular Addtl Attending Provider Instructions: Mr. Singh, it was our pleasure evaluating your for your chest pain and treating you for your pericarditis. We think this was likely secondary to a respiratory infection you had earlier and that you have since recovered from. You also have a small amount of fluid in your lung or a pleural effusion. We also think this is secondary to a previous respiratory infection and you do not appear to have a ny active infection going on so we will stop the antibiotics your were on. For the pericarditis we will put you on two medications moving forward, ibuprofen and colchicine For the ibuprofen you are to take 600 mg three times daily for 3 weeks Then take 400 mg three times daily for one week Then take 200 mg 3 times daily for one week then stop For the colchicine you are to take 1 pill twice a day for the next six months. If you have recurrence of your chest pain, please return to medical care. Avoid strenuous exercise for the next three months or when cleared by your primary care provider. I will also be sending you some prilosec to help with your GERD and a weeks worth of nicotine patches. You will need to follow up with your primary care provider for refills and close monitoring to resolution of your pericarditis. Call tomorrow to make an appointment with them. We wish you all the best moving forward and it was a pleasure meeting you. Thanks, Geo Pending Studies at Discharge: No Stand-Alone Forms: My [facility], Smoking Cessation Medications and DC Order Prescriptions: New nicotine [Nicoderm CQ] 21 mg/24 hr Patch 24 Hour 21 mg transdermal QAM 10 Days Qty: 10 RF: 0 ibuprofen 600 mg Tablet 600 mg PO Q8H 21 Days Qty: 63 RF: 0 colchicine [Colcrys] 0.6 mg Tablet 0.6 mg PO BID 30 Days Qty: 60 RF: 0 omeprazole 40 mg capsule,delayed release(DR/EC) 40 mg PO DAILY 14 Days Qty: 14 RF: 0 Continued buprenorphine HCl 8 mg Tablet, Sublingual 8 mg SUBLINGUAL BID RF: 0 Discharge Orders: Discharge Order (Routine); Ordered 03/03/21 Ordered By: Geo Perry Admission Data Admit Date/Time: 03/01/21 16:27 Attending Provider: Wilfred Hodge Admit Provider: Nathanael Sigala Primary Care Provider: PCP,NO Other Providers: Florencio Suarez Other Interventions: Discharge Summary Assessment (RN) Last Done: 03/03/21 11:56 Supervising Physician Co-Signing Physician Notes Patient seen and examined independently of PGY-3 Dr. Perry. Agree with history, exam findings, assessment and plan of care. In brief, Emery is a 40-year-old male with history of prior opioid use disorder and previous episode of acute pericarditis admitted with new pleuritic chest pain and diffuse ST elevations consistent with acute pericarditis. Today, he continues to have pleuritic chest pain. It is slightly better compared to previous days. He does report that he has had some heartburn type symptoms. He has used Prilosec in the past for this with improvement. Vital signs nursing notes reviewed. He is well-appearing. No acute distress. Heart with regular rate and rhythm. There is no pericardial rub. He has good air movement throughout all lung castellanos. Crackles in the left lower base that were present on admission are no longer heard. There is no wheezing. Labs and imaging as above. 1. Acute pericarditis. Continue with colchicine twice daily and ibuprofen 600 mg 3 times daily. Prilosec 40mg daily for GI prophylaxis. Discussed restrictions for physical activity while he is on anti-inflammatories. 2. Left lower lobe opacity, initially thought to be consistent with community-acquired pneumonia. He has received ceftriaxone in the emergency room. Pro-Duane is negative making a bacterial pneumonia much less likely. Stopped ceftriaxone. This may be secondary to resolving viral process. 3. Tobacco use. Nicotine patch ordered. Outpatient rx provided. 4. History of opioid use disorder. Continue Subutex 8 mg twice daily. Dispo: Discharge home today. I personally spent 35 minutes discharge planning for this patient. Resident Activity Tracking Resident Involvement: Resident Care Provided Care Provided: Adult Hospital Medicine
== END 2021-03-03 13:37 | disposition home or self-care (01) ==
LOC: ED 12:48 → 2N 12:48